=== PATIENT | male | born 1990 | race Caucasian/White ===

== ENCOUNTER 2017-07-11 22:46 | Emergency (ER) | payer SELFPAY ==
[2017-07-11 23:01] VITALS: BP 157/98
[2017-07-11] MEDS ORDERED: PROVENTIL IH ONE (23:01)
== END 2017-07-12 07:12 | disposition left against medical advice (07) ==
LOC: ED 22:46
DX: R06.02 Shortness of breath (principal); Z53.21 Procedure and treatment not carried out due to patient leaving prior to being seen by health care provider